=== PATIENT | male | born 1990 | race Caucasian/White ===

== ENCOUNTER 2019-03-29 15:58 | Emergency (ER) | payer SELFPAY ==
[~2019-03-29] VITALS: Ht 175.3 cm; Wt 86.4 kg
[2019-03-29 18:39] VITALS: BP 120/63
== END 2019-03-29 18:41 | disposition home or self-care (01) ==
LOC: EMS 15:58
DX: S80.02XA Contusion of left knee, initial encounter (principal); S80.212A Abrasion, left knee, initial encounter; V28.4XXA Motorcycle driver injured in noncollision transport accident in traffic accident, initial encounter; Y93.89 Activity, other specified; Y92.89 Other specified places as the place of occurrence of the external cause; Y99.8 Other external cause status